=== PATIENT | male | born 1930 | race Caucasian/White ===

== ENCOUNTER 2018-09-28 04:33 | Emergency (ER) | payer OTHER ==
[2018-09-28] MEDS ORDERED: CEPHALEXIN 500MG PREPACK#4 BTL TAKEHOME ONE (04:49)
--- NOTE | 2018-09-28 04:52 | EDPHY ---
H & P Stated Complaint: Fall x4 days ago, R elbow swollen, increasing rash Time Seen by Provider: 09/28/18 04:41 HPI/ROS: Chief Complaint: Right arm swelling HPI: 87-year-old male presenting with pain in his right elbow. Patient states he fell 4 days ago onto his right elbow. He has since had some increasing swelling over the elbow. He does seen on abrasion. He has been soaking it in alternating hot and cold water. Last night he developed some redness in his right upper arm that extended down to who his wrist. This is improved but is still persistent. No fevers or chills. Is does not itch. ROS: 10 systems were reviewed and were negative except those elements noted in the HPI. Social History: [No] smoking, [no] alcohol, [ no recreational drug use] Family History: [non-contributory] Physical Exam: General: Awake, alert, no acute distress Right arm: Patient has swelling over his olecranon bursa with small abrasion. Is not red. It is not warm to the touch. There is no fluctuance. He does have small area of patchy erythema on his mid upper arm. It is not continuous with the olecranon bursitis. Is mildly warm to the touch. It is only very small irregularly circumscribed area. 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 - Social History Smoking Status: Never smoked Constitutional: Initial Vital Signs Temperature (C) 36.8 C 09/28/18 04:36 Heart Rate 68 09/28/18 04:36 Respiratory Rate 18 09/28/18 04:36 Blood Pressure 136/73 H 09/28/18 04:36 O2 Sat (%) 95 09/28/18 04:36 O2 Delivery Mode Room Air Allergies/Adverse Reactions: No Known Allergies Allergy (Verified 09/28/18 04:34) Home Medications: Medication Instructions Recorded Hydrocodone/APAP 5/325 [[place] 1 - 2 tab PO Q4 PRN #8 tab 01/25/14 5/325 (RX)] Ofloxacin 0.3% [Ocuflox 0.3%] 2 drops OP Q6 5 Days 01/25/14 Cephalexin [Keflex (*)] 500 mg PO Q6H #40 cap 09/28/18 Medical Decision Making ED Course/Re-evaluation: Patient has a likely traumatic bursitis with an area of erythema approximately which could be an early cellulitis. Do not see any evidence of a septic bursitis at this time. Will start him on Keflex and have him follow up with primary care physician at [place]. I have marked the area of erythema with a skin marker. He will return if the redness spreads beyond the demarcated area. Departure - Departure Disposition: Home, Routine, Self-Care Clinical Impression: Cellulitis Condition: Good Instructions: Cellulitis (ED) Additional Instructions: Follow up with primary care physician in 2-3 days for further evaluation. Return emergency department if the redness spreads outside of the marked area, increasing elbow pain or swelling, fevers, or any other concerns. Referrals: [facility] ,. [Edm Groups for Call Sched] - As per Instructions Prescriptions: Cephalexin [Keflex (*)] 500 mg PO Q6H #40 cap
[2018-09-28 05:29] VITALS: BP 111/66
== END 2018-09-28 05:30 | disposition home or self-care (01) ==
DX: L03.113 Cellulitis of right upper limb (principal)